=== PATIENT | male | born 1970 | race Hispanic/Latino ===

== ENCOUNTER 2018-09-19 22:58 | Emergency (ER) | payer OTHER ==
[2018-09-19] MEDS ORDERED: ZOFRAN ODT ONE (23:35)
[2018-09-19] MEDS ORDERED: ZOFRAN ODT PO ONE (23:38)
[2018-09-20 00:16] LABS: Basophils # (Auto) 0.1 K/mm3 (0.0-0.1); Basophils % (Auto) 1.4 % (0.0-1.8); Eosinophils # (Auto) 0.2 K/mm3 (0.0-0.4); Eosinophils % (Auto) 3.7 % (0.0-4.3); Hemoglobin 14.6 gm/dl (11.8-15.2); Lymphocytes % (Auto) 40.8 % (13.4-35.0); Mean Corpuscular HGB Conc 35 % (32-34); Mean Corpuscular Volume 86 fl (84-94); Monocytes # (Auto) 0.5 K/mm3 (0.0-0.8); Monocytes % (Auto) 10.7 % (0.0-7.3); Platelet Count 249 K/mm3 (140-440); Red Blood Count 4.91 M/mm3 (3.65-5.03); Red Cell Distribution Width 12.6 % (13.2-15.2)
[2018-09-20 00:24] LABS: BUN/Creatinine Ratio 11; Blood Urea Nitrogen 8 mg/dL (9-20); Hemolysis Index 6
[2018-09-20] MEDS ORDERED: NACL 0.9% 1000 ML 1,000 ML IV ONE (02:17)
[2018-09-20] MEDS ORDERED: MORPHINE IV ONE (02:17)
--- NOTE | 2018-09-20 02:26 | Emergency Department Report ---
ED Abdominal Pain HPI - General Chief Complaint: Abdominal Pain Stated Complaint: ABD PAIN Time Seen by Provider: 09/20/18 01:51 Source: patient Mode of arrival: Ambulatory Limitations: No Limitations - History of Present Illness Initial Comments: 48-year-old male presents to ED with complaint of abdominal pain that began yesterday. Patient states he has been dealing with abdominal issues for the last 3 months. States he has been seen by business development manager, had CT scans done, upper endoscopy, colonoscopy. Patient states colonoscopy was normal. S tates inflammation was seen on upper endoscopy, so patient is currently taking Cipro and Flagyl. Patient states yesterday, he began to experience burning epigastric pain radiating to the back. Reports associated nausea and vomiting. MD Complaint: abdominal pain -: This afternoon Location: epigastric Radiation: back Migration to: no migration Severity: severe Severity scale (0 -10): 9 Quality: burning Consistency: intermittent Improves With: nothing Worsens With: nothing Context: other (recent abdominal issues) Associated Symptoms: nausea, vomiting. denies: diarrhea, fever - Related Data Previous Rx's Medication Instructions Recorded Last Taken Type Dicyclomine [Bentyl] 20 mg PO QID PRN #20 tablet 09/20/18 Unknown Rx Ondansetron [Zofran Odt] 4 mg PO Q8HR PRN #20 tab.rapdis 09/20/18 Unknown Rx Allergies Allergy/AdvReac Type Severity Reaction Status Date / Time No Known Allergies Allergy Verified 09/19/18 23:54 ED Review of Systems ROS: Stated complaint: ABD PAIN Other details as noted in HPI Comment: All other systems reviewed and negative Constitutional: denies: chills, fever Gastrointestinal: abdominal pain, nausea, vomiting ED Past Medical Hx - Past Medical History Previous Medical History?: Yes Additional medical history: chronic joint pain. inflammation in stomach - Surgical History Past Surgical History?: No - Social History Smoking Status: Never Smoker Substance Use Type: None - Medications Home Medications: Home Medications Medication Instructions Recorded Confirmed Last Taken Type Dicyclomine [Bentyl] 20 mg PO QID PRN #20 tablet 09/20/18 Unknown Rx Ondansetron [Zofran Odt] 4 mg PO Q8HR PRN #20 tab.rapdis 09/20/18 Unknown Rx ED Physical Exam - General Limitations: No Limitations General appearance: alert, in no apparent distress - Head Head exam: Present: atraumatic, normocephalic - Eye Eye exam: Present: normal appearance - ENT ENT exam: Present: mucous membranes moist - Neck Neck exam: Present: normal inspection - Respiratory Respiratory exam: Present: normal lung sounds bilaterally. Absent: respiratory distress - Cardiovascular Cardiovascular Exam: Present: regular rate, normal rhythm - GI/Abdominal GI/Abdominal exam: Present: soft, tenderness (mild diffuse abdominal tenderness, worse in epigastric and RUQ). Absent: distended - Extremities Exam Extremities exam: Present: normal inspection - Neurological Exam Neurological exam: Present: alert, oriented X3 - Psychiatric Psychiatric exam: Present: normal affect, normal mood - Skin Skin exam: Present: warm, dry, intact, normal color. Absent: rash ED Course Vital Signs 09/19/18 09/20/18 09/20/18 23:29 01:47 02:00 Temperature 97.8 F 97.9 F Pulse Rate 75 68 Respiratory 22 15 Rate Blood Pressure 126/73 131/76 Blood Pressure 131/76 [Left] O2 Sat by Pulse 97 99 99 Oximetry 09/20/18 03:05 Temperature Pulse Rate Respiratory Rate Blood Pressure 130/74 Blood Pressure [Left] O2 Sat by Pulse 99 Oximetry ED Medical Decision Making - Lab Data Result diagrams: 09/19/18 23:39 09/19/18 23:39 - Radiology Data Radiology results: report reviewed, image reviewed - Medical Decision Making Pt comfortable, nontoxic. No emesis while here in ED. Feeling better at this time. Abdominal series and US both unremarkable. Labs and vitals normal. Pt advised to continue with his current treatment plan consisting of cipro, flagyl, zantac. Advised to f/u w/ his business development manager. Will give prescription for bentyl and zofran. - Differential Diagnosis pancreatitis, bowel obstruction, gallstones, gastritis Critical care attestation.: If time is entered above; I have spent that time in minutes in the direct care of this critically ill patient, excluding procedure time. ED Disposition Clinical Impression: Gastritis Disposition: DC-01 TO HOME OR SELFCARE Is pt being admited?: No Condition: Stable Instructions: Gastritis (ED) Prescriptions: Dicyclomine [Bentyl] 20 mg PO QID PRN #20 tablet PRN Reason: abdominal pain Ondansetron [Zofran Odt] 4 mg PO Q8HR PRN #20 tab.rapdis PRN Reason: Vomiting Referrals: PRIMARY CARE, [Referring] - 3-5 Days Time of Disposition: 04:01
[2018-09-20 02:47] LABS: Alanine Aminotransferase 25 units/L (7-56); Albumin 4.2 g/dL (3.9-5)
[2018-09-20 02:49] LABS: Bilirubin,Direct < 0.2 mg/dL (0-0.2)
--- NOTE | 2018-09-20 02:49 | XRay Report ---
PROCEDURE: XR ABD SERIES W CXR 1V TECHNIQUE: Acute abdominal series including PA view of the chest, supine and upright views of the ab domen. HISTORY: Vomiting with pain in the upper abdomen/back. COMPARISONS: None available. FINDINGS: CHEST: Lungs are clear without focal consolidation, pleural effusion or pneumothorax. The cardiac rosa elena houette appears normal. Fluid levels noted in the stomach. ABDOMEN: Nonobstructive bowel gas pattern. Moderate volume formed stool is noted within the ascending and transverse colon. No pathologic calcification overlies either renal shadow. Osseous structures w ithout acute abnormality. IMPRESSION: 1. No acute cardiopulmonary disease. 2. Nonobstructive bowel gas pattern. 3. Moderate volume of stool fills the right and transverse colon. This document is electronically signed by Angus Lala DO., September 20 2018 02:47:10 AM ET
[2018-09-20 02:55] LABS: Bilirubin,Urine NEG (Negative); Blood,Urine NEG (Negative); Color,Urine Colorless (Yellow); Protein,Urine <15 mg/dL mg/dL (Negative); Urobilinogen,Urine < 2.0 mg/dL (<2.0)
[2018-09-20 03:02] LABS: WBC,Urine < 1.0 /HPF (0.0-6.0)
--- NOTE | 2018-09-20 03:18 | Ultrasound Report ---
PROCEDURE: US GALLBLADDER TECHNIQUE: Real-time sonography in multiple planes of the gallbladder fossa and CBD with imaging of the adjacent liver, pancreas, and right kidney was performed with image documentation. CPT 55400 HISTORY: Abdominal pain COMPARISONS: None . FINDINGS: Liver: Normal size and echotexture with no evidence of cystic or solid mass lesion. Gallbladder: The gallbladder is contracted. There are no stones. There is no pericholecystic fluid.. Intrahepatic bile ducts: Normal . Extrahepatic bile ducts: Normal. Pancreas: Normal as visualized with suboptimal depiction of the pancreatic tail. Right kidney: Normal echotexture. No focal renal mass, calculus, or hydronephrosis. Other: There is minimal ascites at the stomach antrum.. IMPRESSION: There is no acute intra-abdominal abnormality. . This document is electronically signed by Siva Stein MD., September 20 2018 03:16:42 AM ET
[2018-09-20 04:34] VITALS: BP 116/71
== END 2018-09-20 04:35 | disposition home or self-care (01) ==
LOC: ED 22:58
DX: K29.70 Gastritis, unspecified, without bleeding (principal)
CPT/HCPCS: 36415; 74022; 76705; 80048; 80076; 81001; 83690; 85025; 96361; 96374; 99284; J2270; J7030; Q0162